=== PATIENT | female | born 1940 | race Caucasian/White ===

== ENCOUNTER → 2018-01-25 | Outpatient (CLI) | payer MEDICARE | LOC: CFH 07:55 | PROVIDERS: ATTEND Physician Assistant | DX: M51.26 Other intervertebral disc displacement, lumbar region (principal); M47.816 Spondylosis without myelopathy or radiculopathy, lumbar region; M48.061 Spinal stenosis, lumbar region without neurogenic claudication; M48.07 Spinal stenosis, lumbosacral region | CPT/HCPCS: 72148 ==

== ENCOUNTER 2019-01-22 02:13 | Observation (INO) | payer MEDICARE ==
[~2019-01-22] VITALS: Ht 165.1 cm; Wt 102.4 kg
[2019-01-22 03:34] VITALS: BP 182/73
[2019-01-22] MEDS ORDERED: METF500T27 PO (03:45)
[2019-01-22] MEDS ORDERED: ASPI81TA45 PO (03:45)
[2019-01-22] MEDS ORDERED: GLIP5TAB22 PO (03:45)
[2019-01-22] MEDS ORDERED: LOSA1TAB25 PO (03:45)
[2019-01-22] MEDS ORDERED: AMLO10TA8 PO (03:45)
[2019-01-22] MEDS ORDERED: PRAV40TA2 PO (03:45)
[2019-01-22] MEDS ORDERED: CHOL2000 PO (03:45)
[2019-01-22] MEDS ORDERED: OMEG100023 PO (03:45)
[2019-01-22] MEDS ORDERED: ONDANSETRON 2MG/ML, 2ML IVPush PRN (04:00)
[2019-01-22 04:37] LABS: BASOPHILS # (AUTO) 0.04 x10^3/uL (0-0.1); BASOPHILS % (AUTO) 0 % (0-1); EOSINOPHILS # (AUTO) 0.08 x10^3/uL (0-0.4); EOSINOPHILS % (AUTO) 1 % (1-7); LYMPHOCYTES # (AUTO) 3.01 x10^3/uL (1-3.4); LYMPHOCYTES % (AUTO) 25 % (22-44); MD NO; MEAN CORPUSCULAR HEMOGLOBIN 28.7 pg (27.0-34.8); MEAN CORPUSCULAR HGB CONC 33.1 g/dL (32.4-35.8); MEAN CORPUSCULAR VOLUME 86.7 fL (80-100); MEAN PLATELET VOLUME 8.9 fL (7.4-10.4); MONOCYTES # (AUTO) 0.46 x10^3/uL (0.2-0.8); MONOCYTES % (AUTO) 4 % (2-9); NEUTROPHILS # (AUTO) 8.67 x10^3/uL (1.8-6.8); NEUTROPHILS % (AUTO) 71 % (42-75); PLATELET COUNT 351 x10^3/uL (130-400); RED BLOOD COUNT 4.63 x10^6/uL (3.82-5.3); RED CELL DISTRIBUTION WIDTH 15.6 % (9.6-15.2)
[2019-01-22 04:44] LABS: INTERNATIONAL NORMALIZED RATIO 0.96 (0.93-1.1); PROTHROMBIN TIME 10.1 Seconds (9.6-11.5)
[2019-01-22 04:50] LABS: ANION GAP 8 mmol/L (5-15); CALCIUM 10.4 mg/dL (8.5-10.1); CHLORIDE 99 mmol/L (98-107)
[2019-01-22 04:53] LABS: HEMOGLOBIN A1C 6.2 % (4.2-6.3)
[2019-01-22 04:57] LABS: CREATININE 1.38 mg/dL (0.55-1.02); TROPONIN I < 0.015 ng/mL (0.000-0.045)
[2019-01-22] MEDS ORDERED: hydrALAzine 20 MG/ML, 1ML IV PRN (05:30)
[2019-01-22 05:58] VITALS: BP 147/69
[2019-01-22] MEDS: INSULIN LISPRO 100 UNITS/ML, PEN SQ-INSULIN SCH ×4 (07:59→21:15)
[2019-01-22 08:20] VITALS: BP 154/76
[2019-01-22] MEDS ORDERED: LOSARTAN 50MG TABLET PO SCH ×2 (09:00→21:00)
[2019-01-22] MEDS: HYDROCHLOROTHIAZIDE 12.5 MG CAPSULE PO SCH (09:12)
[2019-01-22] MEDS: GLIPizide ER 5 MG TABLET PO SCH (09:12)
[2019-01-22 12:03] VITALS: BP 122/79
[2019-01-22 12:56] LABS: TROPONIN I < 0.015 ng/mL (0.000-0.045)
[2019-01-22 13:02] LABS: HEMOGLOBIN A1C 6.4 % (4.2-6.3)
[2019-01-22] MEDS: HEPARIN 5,000 UNITS/ML, 1ML SQ SCH ×2 (16:48→21:07)
[2019-01-22 18:53] VITALS: BP 155/69
[2019-01-22] MEDS ORDERED: MELATONIN 3 MG TABLET PO PRN (20:30)
[2019-01-22] MEDS ORDERED: PRAVASTATIN 40 MG TABLET PO SCH (21:00)
[2019-01-22] MEDS ORDERED: AMLODIPINE 10 MG TAB PO SCH (21:00)
[2019-01-22] MEDS ORDERED: ASPIRIN 81 MG TABLET EC PO SCH (21:00)
[2019-01-23 01:24] VITALS: BP 140/56
[2019-01-23] MEDS: HEPARIN 5,000 UNITS/ML, 1ML SQ SCH (05:01)
[2019-01-23 06:17] LABS: BASOPHILS # (AUTO) 0.03 x10^3/uL (0-0.1); BASOPHILS % (AUTO) 0 % (0-1); EOSINOPHILS # (AUTO) 0.25 x10^3/uL (0-0.4); EOSINOPHILS % (AUTO) 3 % (1-7); LYMPHOCYTES # (AUTO) 3.48 x10^3/uL (1-3.4); LYMPHOCYTES % (AUTO) 35 % (22-44); MD NO; MEAN CORPUSCULAR HEMOGLOBIN 28.4 pg (27.0-34.8); MEAN CORPUSCULAR HGB CONC 32.8 g/dL (32.4-35.8); MEAN CORPUSCULAR VOLUME 86.8 fL (80-100); MEAN PLATELET VOLUME 8.8 fL (7.4-10.4); MONOCYTES # (AUTO) 0.83 x10^3/uL (0.2-0.8); MONOCYTES % (AUTO) 8 % (2-9); NEUTROPHILS # (AUTO) 5.38 x10^3/uL (1.8-6.8); NEUTROPHILS % (AUTO) 54 % (42-75); PLATELET COUNT 307 x10^3/uL (130-400); RED BLOOD COUNT 4.31 x10^6/uL (3.82-5.3); RED CELL DISTRIBUTION WIDTH 16.3 % (9.6-15.2)
[2019-01-23 06:39] LABS: CHLORIDE 106 mmol/L (98-107)
[2019-01-23 06:53] LABS: ALANINE AMINOTRANSFERASE 23 U/L (12-78); ALBUMIN 3.4 g/dL (3.4-5.0); ALKALINE PHOSPHATASE 65 U/L (45-117); ANION GAP 7 mmol/L (5-15); BILIRUBIN,TOTAL 0.6 mg/dL (0.2-1.0); CALCIUM 9.6 mg/dL (8.5-10.1); CHOL/HDL RATIO 2.8; CHOLESTEROL, TOTAL 130 mg/dL (140-239); CREATININE 1.15 mg/dL (0.55-1.02); HDL CHOL % 35 % (28-40); HDL CHOLESTEROL (DIRECT) 46 mg/dL (40-60); LDL CHOLESTEROL,CALCULATED 62 mg/dL (54-169); LDL/HDL RATIO 1.3 (0.5-3.0); TOTAL PROTEIN 6.8 g/dL (6.4-8.2); TRIGLYCERIDES 111 mg/dL (50-200); VLDL CHOLESTEROL 22 mg/dL (0-25)
[2019-01-23] MEDS: INSULIN LISPRO 100 UNITS/ML, PEN SQ-INSULIN SCH (07:16)
[2019-01-23 08:00] VITALS: BP 120/40
[2019-01-23] MEDS: GLIPizide ER 5 MG TABLET PO SCH (08:17)
[2019-01-23] MEDS: HYDROCHLOROTHIAZIDE 12.5 MG CAPSULE PO SCH (08:17)
== END 2019-01-23 10:20 | disposition home or self-care (01) ==
LOC: 5SO 03:19 → INTOOBSV 03:19 → DCLOUNGE 01-23 10:12
PROVIDERS: ADMIT Internal Medicine; ATTEND Internal Medicine
DX: R07.89 Other chest pain (principal); D72.829 Elevated white blood cell count, unspecified; E11.9 Type 2 diabetes mellitus without complications; E66.9 Obesity, unspecified; E78.5 Hyperlipidemia, unspecified; H93.19 Tinnitus, unspecified ear; I10 Essential (primary) hypertension; I65.21 Occlusion and stenosis of right carotid artery; N17.9 Acute kidney failure, unspecified; Z80.41 Family history of malignant neoplasm of ovary; Z82.49 Family history of ischemic heart disease and other diseases of the circulatory system; Z87.891 Personal history of nicotine dependence
CPT/HCPCS: 36415; 72072; 80048; 80053; 80061; 82962; 83036; 83735; 84100; 84145; 84443; 84484; 85025; 85379; 85610; 93005; 93306; 93970; 96372; G0378; J1815

== ENCOUNTER 2019-02-19 06:20 | Emergency (ER) | payer MEDICARE ==
[~2019-02-19] VITALS: Ht 165.1 cm; Wt 100.2 kg
[~2019-02-19 06:20] MED LIST: AMLO10TA8 PO; ASPI81TA45 PO; CHOL2000 PO; GLIP5TAB22 PO; LOSA1TAB25 PO; METF500T27 PO; OMEG100023 PO; PRAV40TA2 PO
[2019-02-19 06:32] VITALS: BP 142/65
--- NOTE | 2019-02-19 06:33 | NUR ---
Pt presents to ed c/o cough and sore throatx2 weeks. Denies any associated sob/cp. States coughing up yellow/green mucous. denies fevers at home. Denies further gi/gu s/s. monitoring applied. vss. Call light within reach. Md at bedside for assessment.
--- NOTE | 2019-02-19 06:56 | NUR ---
Pt report to cody dowell.
[2019-02-19] MEDS ORDERED: SODIUM CHLORIDE FLUSH 10ML SYR IVF ONE (07:00)
[2019-02-19 07:05] LABS: BASOPHILS # (AUTO) 0.03 x10^3/uL (0-0.1); BASOPHILS % (AUTO) 0 % (0-1); EOSINOPHILS # (AUTO) 0.35 x10^3/uL (0-0.4); EOSINOPHILS % (AUTO) 2 % (1-7); LYMPHOCYTES # (AUTO) 2.87 x10^3/uL (1-3.4); LYMPHOCYTES % (AUTO) 19 % (22-44); MD NO; MEAN CORPUSCULAR HEMOGLOBIN 28.6 pg (27.0-34.8); MEAN CORPUSCULAR VOLUME 86.7 fL (80-100); MEAN PLATELET VOLUME 8.3 fL (7.4-10.4); MONOCYTES # (AUTO) 1.03 x10^3/uL (0.2-0.8); MONOCYTES % (AUTO) 7 % (2-9); NEUTROPHILS # (AUTO) 10.64 x10^3/uL (1.8-6.8); NEUTROPHILS % (AUTO) 71 % (42-75); PLATELET COUNT 357 x10^3/uL (130-400); RED BLOOD COUNT 4.34 x10^6/uL (3.82-5.3); RED CELL DISTRIBUTION WIDTH 15.7 % (9.6-15.2)
[2019-02-19 07:14] LABS: ALBUMIN 3.1 g/dL (3.4-5.0); ANION GAP 10 mmol/L (5-15); CHLORIDE 103 mmol/L (98-107)
[2019-02-19 07:16] LABS: ALANINE AMINOTRANSFERASE 18 U/L (12-78); CREATININE 1.21 mg/dL (0.55-1.02)
[2019-02-19 07:20] LABS: ALKALINE PHOSPHATASE 79 U/L (45-117); BILIRUBIN,TOTAL 0.9 mg/dL (0.2-1.0); TOTAL PROTEIN 7.2 g/dL (6.4-8.2); TROPONIN I < 0.015 ng/mL (0.000-0.045)
== END 2019-02-19 08:51 | disposition home or self-care (01) ==
LOC: MERGE 06:20 → ED 07:48
DX: J01.10 Acute frontal sinusitis, unspecified (principal); J01.00 Acute maxillary sinusitis, unspecified; I10 Essential (primary) hypertension; E11.9 Type 2 diabetes mellitus without complications; Z90.710 Acquired absence of both cervix and uterus
CPT/HCPCS: 36415; 71046; 80053; 83605; 83880; 84484; 85025; 93005; 99284

== ENCOUNTER 2020-03-10 21:03 | Emergency (ER) | payer MEDICARE ==
[~2020-03-10] VITALS: Ht 165.1 cm; Wt 100.0 kg
[2020-03-10 21:09] VITALS: BP 164/67
[2020-03-10 21:55] LABS: BASOPHILS # (AUTO) 0.01 x10^3/uL (0-0.1); BASOPHILS % (AUTO) 0 % (0-1); EOSINOPHILS # (AUTO) 0.04 x10^3/uL (0-0.4); EOSINOPHILS % (AUTO) 0 % (1-7); LYMPHOCYTES # (AUTO) 2.15 x10^3/uL (1-3.4); LYMPHOCYTES % (AUTO) 12 % (22-44); MD NO; MEAN CORPUSCULAR HEMOGLOBIN 28.5 pg (27.0-34.8); MEAN CORPUSCULAR HGB CONC 32.6 g/dL (32.4-35.8); MEAN CORPUSCULAR VOLUME 87.3 fL (80-100); MEAN PLATELET VOLUME 8.3 fL (7.4-10.4); MONOCYTES # (AUTO) 0.73 x10^3/uL (0.2-0.8); MONOCYTES % (AUTO) 4 % (2-9); NEUTROPHILS % (AUTO) 83 % (42-75); PLATELET COUNT 329 x10^3/uL (130-400); RED CELL DISTRIBUTION WIDTH 15.8 % (9.6-15.2)
[2020-03-10 22:07] LABS: ALBUMIN 3.2 g/dL (3.4-5.0); ANION GAP 6 mmol/L (5-15); CALCIUM 9.7 mg/dL (8.5-10.1); CHLORIDE 100 mmol/L (98-107); CREATININE 1.26 mg/dL (0.55-1.02)
[2020-03-10] MEDS ORDERED: CEPHALEXIN 500 MG CAPSULE PO ONE (23:00)
[2020-03-10] MEDS ORDERED: IBUPROFEN 600 MG TABLET PO ONE (23:00)
[2020-03-10] MEDS ORDERED: IBUPROFEN 600 MG TABLET ONE (23:09)
[2020-03-10] MEDS ORDERED: CEPHALEXIN 500 MG CAPSULE ONE (23:09)
== END 2020-03-10 23:43 | disposition home or self-care (01) ==
LOC: ED 23:00
DX: M79.671 Pain in right foot (principal); R60.0 Localized edema; I10 Essential (primary) hypertension; E78.00 Pure hypercholesterolemia, unspecified; E11.9 Type 2 diabetes mellitus without complications; Z87.891 Personal history of nicotine dependence
CPT/HCPCS: 36415; 73630; 80048; 82040; 85025; 93971; 99285; J7512